=== PATIENT | male | born 1980 | race Caucasian/White ===

== ENCOUNTER 2017-05-11 22:04 | Emergency (ER) | payer OTHER ==
[~2017-05-11] VITALS: Ht 172.7 cm; Wt 86.6 kg
[~2017-05-11 22:04] MED LIST: BENTYL20 MG PO; DICYCLOMINE HCL10 MG PO; DICYCLOMINE HCL20 MG PO; DILAUDID2 MG PO; NORCO 5-325 TA1 EACH PO; ONDANSETRON HCL8 MG PO; PERCOCET 5-3251 EACH PO; PREDNISONE10 MG PO; PREDNISONE20 MG PO; PREVACID15 MG PO; PRILOSEC40 MG PO; PROMETHAZINE HC50 MG PO; PROTONIX40 MG PO; ULTRAM50 MG PO; VITAMIN D31000 UNIT PO; ZOFRAN ODT4 MG SL; ZOFRAN4 MG PO
[2017-05-11] MEDS ORDERED: TRAMADOL HCL50 MG PO (23:13)
[2017-05-24] MEDS ORDERED: BENTYL10 MG PO (13:59)
[2017-05-24] MEDS ORDERED: DICLOFENAC POTA50 MG PO (14:00)
[2017-05-24] MEDS ORDERED: EPIPEN 2-P0.3 MG/0.3 IM (14:01)
[2017-05-24] MEDS ORDERED: LEXAPRO20 MG PO (14:02)
[2017-05-24] MEDS ORDERED: LOPERAMIDE2 MG PO (14:03)
[2017-05-24] MEDS ORDERED: VENTOLIN HFA18 GM INH (14:03)
[2017-05-24] MEDS ORDERED: ZOFRAN4 MG PO (14:04)
[2017-10-02] MEDS ORDERED: AZITHROMYCIN500 MG PO (14:17)
== END 2017-05-11 23:41 | disposition home or self-care (01) ==
LOC: ED 22:04
PROC: 2W3DX1Z Immobilization of Left Lower Arm using Splint (ICD-10-PCS; principal; 2017-05-11)
DX: S62.002A Unspecified fracture of navicular [scaphoid] bone of left wrist, initial encounter for closed fracture (principal); K21.9 Gastro-esophageal reflux disease without esophagitis; F17.200 Nicotine dependence, unspecified, uncomplicated; Z87.442 Personal history of urinary calculi; Z88.5 Allergy status to narcotic agent; Z79.899 Other long term (current) drug therapy; Z91.030 Bee allergy status; X58.XXXA Exposure to other specified factors, initial encounter
CPT/HCPCS: 29125; 73110; 99283

== ENCOUNTER 2017-06-09 11:00 | Day surgery (SDC) | payer OTHER ==
[~2017-06-09] VITALS: Ht 172.7 cm; Wt 83.5 kg
[~2017-06-09 11:00] MED LIST changes: +BENTYL10 MG PO; +DICLOFENAC POTA50 MG PO; +EPIPEN 2-P0.3 MG/0.3 IM; +LEXAPRO20 MG PO; +LOPERAMIDE2 MG PO; +TRAMADOL HCL50 MG PO; +VENTOLIN HFA18 GM INH
--- NOTE | 2017-06-09 12:43 | NUR ---
06/09/17 1243 Melissa Campoverde 1232 PT SLEEPY LAYING ON STOMACH. NO C/O'S.
--- NOTE | 2017-06-14 09:37 | OR ---
[facility] [address] [place] [address] Signed DATE OF SERVICE: 06/09/2017 PROCEDURE Left posterior iliac crest bone marrow biopsy and aspirate. After explaining risks, benefits, and alternatives to bone marrow biopsy and aspiration under conscious sedation for evaluation of a myeloproliferative syndrome and obtaining informed written consent, the patient was taken to a private area of the post anesthesia recovery unit where a time-out was taken and the patient and the procedure were correctly identified. He was placed in the prone position. The left posterior iliac crest was prepped and draped in the usual standard manner. Conscious sedation was applied by ANGIE Orozco with 100 mcg of intravenous fentanyl and 3 mg of intravenous midazolam. Local anesthesia was obtained over the left posterior iliac crest with 1 mL of 1% lidocaine and a left posterior iliac crest bone marrow biopsy and aspirate were obtained without adverse effects. Kyra Foreman MD RQ/Modl /[id number] Electronically Signed By: KYRA FOREMAN MD 06/14/17 0937 PATIENT NAME: SARBJIT WALLS BART OPERATIVE REPORT DATE OF : 82 PHYSICIAN: KYRA FOREMAN MD REPORT #: [id number] REPORT IS CONFIDENTIAL AND NOT TO BE RELEASED WITHOUT AUTHORIZATION
--- NOTE | 2017-06-28 14:21 | ONC ---
[facility] [address] [place], [place] [address] 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 ACTIVE DIAGNOSES: Sarbjit has a documented elevation of his white blood count repeatedly ever since April 14, 2008, when his white count was 17,900. The patient went on to have 10 determinations of his white count since 2007; all have been abnormal white count elevations between 12,000 and 25,600. Complete blood count on March 10, 2017 was notable for a white count of 15,500, hemoglobin of 16 g/dL, hematocrit 48.7%, platelet count 329,000. Bone marrow biopsy and aspiration were performed on June 09, 2017. Pathological specimen [facility] [id number] was analyzed at [facility] and demonstrated a normal cellular bone marrow for age with trilineage hematopoiesis and no evidence of increased blasts, no evidence of reticulin fibrosis, no evidence of acute or chronic leukemia, no evidence of infiltrative process such as lymphoma or multiple myeloma and cytogenetics demonstrating 47 XY diploid male in 20 out of 20 metaphases. CHIEF COMPLAINT: Sarbjit Mello returned to clinic on June 23, 2017, to follow up on his June 09, 2017, bone-marrow biopsy. CURRENT REVIEW OF SYSTEMS: CONSTITUTIONAL: Positive for fatigue, positive for nausea, positive for vomiting, positive for night sweats. Denies high fever or shaking chills. Denies anorexia or weight loss. ENMT: Denies odynophagia, dysphagia or tinnitus. CARDIOVASCULAR: Denies chest pains, palpitations or orthopnea. RESPIRATORY: Denies cough, hemoptysis, or sputum production. GASTROINTESTINAL: Positive for chronic diarrhea. GENITOURINARY: Denies hematuria or dysuria. MUSCULOSKELETAL: Positive for chronic joint pain rated at 6/10. NEUROLOGIC: Positive for insomnia. ENDOCRINE: Denies heat or cold intolerance, polyuria, or polydipsia. HEMATOLOGIC: Denies spontaneous bruising or bleeding. PAST MEDICAL HISTORY: Depressive disorder. Syncope. Gastroesophageal reflux disease. Hyperlipidemia. Electronically Signed By: KYRA FOREMAN MD 06/28/17 1421 PATIENT NAME: SARBJIT MELLO ONCOLOGY REPORT DATE OF : 82 PHYSICIAN: KYRA FOREMAN MD REPORT #: [id number] REPORT IS CONFIDENTIAL AND NOT TO BE RELEASED WITHOUT AUTHORIZATION [facility] [address] [place] [id number] Signed Irritable bowel syndrome. Sleep apnea. Osteoarthritis. Vitamin D deficiency. PAST SURGICAL HISTORY: None. PSYCHOSOCIAL HISTORY: Lives in [place], [place], with his mother. He is unemployed. HABITS: Tobacco, 1 pack of cigarettes per day for 25 years. Daily smoking marijuana for 20 years. No use or abuse of alcohol. No use or abuse of intravenous or recreational drugs. FAMILY HISTORY: No history of cancer in first-degree relatives. CURRENT MEDICATIONS: Percocet 5/325. Simvastatin 20 mg. Vitamin D 2000 units. Diclofenac 50 mg. Ventolin HFA 108 mcg. Promethazine 50 mg. Omeprazole 20 mg. Escitalopram 20 mg. Zofran 8 mg ODT. Loperamide 2 mg. Bentyl 20 mg. EpiPen 0.3 mg. CPAP device. ALLERGIES: Vicodin. PHYSICAL EXAMINATION: VITAL SIGNS: Blood pressure is 147/84, pulse is 105, respiratory rate 16, saturation of oxygen 97% on room air, temperature is 97.5 degrees Fahrenheit. He is 5 feet and 8 inches tall. He weighs 84.2 kg. Body surface area is 1.94 m2, body mass index is 28.2 kg/m2. ECOG performance status equals 0. HEENT: Sclerae are anicteric. Oropharynx is free of lesions. NECK: Supple without thyromegaly. LUNGS: Clear to auscultation. CARDIOVASCULAR: Regular rate and rhythm. Normal S1, normal S2 without rubs, gallops, or Electronically Signed By: KYRA FOREMAN MD 06/28/17 1421 PATIENT NAME: SARBJIT MELLO ONCOLOGY REPORT DATE OF : 82 PHYSICIAN: KYRA FOREMAN MD REPORT #: [id number] REPORT IS CONFIDENTIAL AND NOT TO BE RELEASED WITHOUT AUTHORIZATION [address] [address] Signed murmurs. ABDOMEN: Notable for the absence of splenomegaly. LYMPH NODE SURVEY: No cervical, supraclavicular, axillary or inguinal lymphadenopathy. MUSCULOSKELETAL: No joint deformity, no sarcopenia. SKIN: Notable for the fact that approximately 20% of his body is covered with tattoos including the chest, both shoulders, upper extremities and abdomen. There are smaller tattoos on the lower extremities. LABORATORY DATA: Hemoglobin is 16.5 g/dL, hematocrit is 48.8%, platelet count is 300,000, white count is 16,400, with 53 neutrophils, 37 lymphocytes, 5% monocytes, 5% eosinophils and 1% basophils. ASSESSMENT: Leukemoid reaction due to chronic tobaccoism. PLAN: Reassurance. I told Sarbjit that there is no evidence of hematopoietic neoplasm and that his elevation of white count is due to his chronic cigarette smoking. I recommended that he work with Ryann Braden on concerted effort to stop cigarette smoking, which should ultimately normalize his white count over time. Followup in the cancer center is open. Kyra Foreman MD RQ/Modl /[id number] cc: Dr. Ryann Braden Electronically Signed By: KYRA FOREMAN MD 06/28/17 1421 PATIENT NAME: SARBIJT MELLO BART ONCOLOGY REPORT DATE OF : 82 PHYSICIAN: KYRA FOREMAN MD REPORT #: [id number] REPORT IS CONFIDENTIAL AND NOT TO BE RELEASED WITHOUT AUTHORIZATION
[2017-10-02] MEDS ORDERED: AZITHROMYCIN500 MG PO (14:17)
== END 2017-06-09 13:19 | disposition home or self-care (01) ==
LOC: DS 11:00
PROVIDERS: Specialist
PROC: 07DR3ZX Extraction of Iliac Bone Marrow, Percutaneous Approach, Diagnostic (ICD-10-PCS; principal; 2017-06-09 12:00)
DX: D72.829 Elevated white blood cell count, unspecified (principal); F32.9 Major depressive disorder, single episode, unspecified; K21.9 Gastro-esophageal reflux disease without esophagitis; E78.5 Hyperlipidemia, unspecified; K58.9 Irritable bowel syndrome, unspecified; G47.30 Sleep apnea, unspecified; M19.90 Unspecified osteoarthritis, unspecified site; E55.9 Vitamin D deficiency, unspecified; Z79.52 Long term (current) use of systemic steroids; Z79.899 Other long term (current) drug therapy; Z88.5 Allergy status to narcotic agent
CPT/HCPCS: 85025; 99152; 99153; J2250; J3010; J7040

== ENCOUNTER 2017-09-29 11:16 | Inpatient (IN) | payer OTHER ==
[~2017-09-29] VITALS: Ht 172.7 cm; Wt 83.9 kg
--- OUTSIDE RECORDS SUMMARY | 2017-09-29 13:14 | XMS ---
Demographics + + + | Address | [address] | | | [address] | | | [place] [address] | + + + | Preferred Language | Unknown | + + + | Marital Status | Unknown | + + + | Zoroastrian Affiliation | Unknown | + + + | Race | Unknown | + + + | Ethnic Group | Unknown | + + + Author + + + | Author | [facility] | + + + | Organization | [facility] | + + + | Address | [address] | | | [place] [phone] | + + + | Phone | | + + + Care Team Providers + + + + | Care Documentation Specialist Name | Role | Phone | + + + + Unavailable | Unavailable | + + + + PROBLEMS +---------+ + + +--------+ + + | Type | Condition | ICD9-CM | [id number] | Onset | Condition | SNOMED | | | | Code | Code | Dates | Status | Code | +---------+ + + +--------+ + + | Problem | 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
--- NOTE | 2017-09-29 15:21 | NUR ---
ASSISTED NURSE WITH GETTING PATIENT ADMITTED AND SETTLED. INITIAL VITAL SIGNS TAKEN.
--- NOTE | 2017-09-29 15:21 | NUR ---
PT ARRIVED TO UNIT AT 1500. PT ABLE TO SELF TRANSFER. PT REPORTS CONSTANT PAIN OF 4/10, BUT INTERMITENT SPASAM OF 10/10. PT REPORTS HE IS A [employer] RE[employer] AND HAS MULTIPLE HEAD TRAUMAS/HITS. UNABLE TO LOOK TO RIGHT AND UP OR HE WILL PASS OUT, PT AWARE OF THIS AND MODIFIES BEHAVIOR. PT STATES HE IS TRYING TO QUIT SMOKING TO HAVE SURGERY ON HIS HAND. HX OF TRIGGER FINGER IN RIGHT HAND.
--- NOTE | 2017-09-29 17:58 | NUR ---
pts vitals taken at this time.
--- NOTE | 2017-09-29 18:04 | NUR ---
PT ARRIVED ON FLOOR AT 1500. REPORTS CONSTANT PAIN OF 4/10, SPASMATIC PAIN IS 10/10. PT RECIEVED K RIDER, CLINDIMYCIN, AND FLAGYL THIS SHIFT. 1L BOLUS GIVEN, 1 MORE BOLUS ORDERED AFTER RIDERS. BOWEL PREP ORDERED. PT WILL BE NPO AT 0800 ON 12/02 FOR POSSIBLE SURGERY. VSS.
--- NOTE | 2017-09-29 18:28 | NUR ---
BOWEL PREP AT BEDSIDE. PT UNDERSTANDS DIRECTIONS TO DRINK THE PREP.
--- NOTE | 2017-09-29 19:15 | NUR ---
BEDSIDE REPORT RECEIVED FROM ANGIE GONZALEZ. PT REPORTS PAIN OF 3-4/10 "PRESSURE" IN ABDOMEN, PT STATES TOLERABLE, REFUSES PRN PAIN MEDICATION, EDUCATED PT TO REPORT PAIN. PT DENIES NAUSEA. URINAL EMPTIED, 200 ML. PT HAS BOWEL PREP ON BEDSIDE TABLE, SECOND IV FLUID BOLUS LR INFUSING WNL, RATE SLOWED TO 500 ML/HR PT REPORTS SOME DISCOMFORT W RAPID INFUSION, NO SWELLING, REDNESS AT SITE. PT HAS NO REQUESTS AT THIS TIME, CALL LIGHT IN REACH.
--- NOTE | 2017-09-29 20:30 | NUR ---
ANSWERED PT CALL LIGHT, PT REPORTING PAIN 8/10 IN RIGHT ABDOMINAL AREA. ADMINSITERED 8 MG PRN IV MORPHINE. PT SITTING UP IN BED, PT ASSESSMENT COMPLETE. BOWEL TONES HYPOACTIVE X 4. ABDOMEN NON-TENDER WITH LIGHT PALPATION, PT STATES FEELS "TIGHT". PT HAS NOT HAD BM THUS FAR, CONTINUES TO DRINK BOWEL PREP. IVF INFUSING WNL, IV SITE FLUSHES WELL, PT DENIES DISCOMFORT WITH SITE. BROUGHT PT'S FRIEND PILLOW, WATER. EMPTIED PT'S URINAL. PT HAS NO ADDITIONAL NEEDS AT THIS TIME, CALL LIGHT IN REACH.
--- NOTE | 2017-09-29 22:04 | NUR ---
PT SLEEPING AT THIS TIME. IN ROOM TO ASSESS IV FLUIDS, PT AWAKENS TO VOICE, BACK TO SLEEP, FRIEND IN ROOM. CALL LIGHT IN REACH.
--- NOTE | 2017-09-29 22:42 | NUR ---
PT SLEEPING, AWAKENS TO VOICE, FLAGYL INFUSING AT THIS TIME. PT REPORTS TIGHTNESS, 0/10 PAIN. PT DENIES NAUSEA. PT HAS NO REQUESTS AT THIS TIME, CALL LIGHT IN REACH.
--- NOTE | 2017-09-29 23:36 | NUR ---
PT VOMITTING IN GARBAGE CAN. ADMINISTERED 4 MG ZOFRAN. PT STATED THAT HE HAD INTENSE PAIN, PT NOW RATES PAIN AT 4/10 IN RLQ. PT REFUSES PRN MORPHINE AT THIS TIME. OFFERED PT WASH CLOTH, PT STATES HE HAS NO NEEDS. PT COMPLAINS OF DIZZINESS, INSTRUCTED PT TO LIE DOWN, PT NOW APPEARS COMFORTABLE, IV ABT INFUSING. [facility] [employer] OBTAINED STOOL CULTURE, SENT TO LAB. CALL LIGHT IS IN REACH.
--- NOTE | 2017-09-30 00:39 | NUR ---
PT SLEEPING AT THIS TIME, LYING ON RIGHT SIDE, SNORING. IV ABT INFUSING AT THIS TIME. PT HAS CALL LIGHT IN REACH.
--- NOTE | 2017-09-30 01:00 | NUR ---
PT REPORTING 6/10 ABD PAIN, UP TO RESTROOM FOR LIQUID BM. EDUCATED PT ON FINISHING BOWEL PREP. ADMINISTERED 8 MG MORPHINE SULFATE IV FOR ABD PAIN. PTS LUNGS CLEAR, BOWEL TONES ACTIVE X 4. PT ABDOMEN SOFT. PT HAS CALL LIGHT IN REACH. IVF INFUSING WNL. PT HAS EMESIS BAG IN LAP.
--- NOTE | 2017-09-30 03:50 | NUR ---
PT AWAKE, LYING IN BED. PT DENIES NAUSEA, STATES HE IS NOT HAVING ANY PAIN AT THIS TIME. PT ABDOMEN SOFT, BOWEL TONES ACTIVE X 4. PT STATES HE WAS JUST UP FOR LIQUID BM, CONTINUING TO DRINK BOWEL PREP. BROUGHT PT WARM BLANKET, DIMMED LIGHTS. PT LISTENING TO BOOK ON TAPE, NO ADDITIONAL REQUESTS AT THIS TIME, IVF INFUSING AT 150 ML/HR. CALL LIGHT IS IN REACH.
--- NOTE | 2017-09-30 05:30 | NUR ---
PT HAS BEEN INDEPENDENT IN ROOM THROUGHOUT SHIFT, UP TO RESTROOM FOR MULTIPLE LIQUID BOWEL MOVEMENTS, DRINKING BOWEL PREP THROUGHOUT SHIFT. PT HAS RECEIVED IV MORPHINE FOR PAIN X 2, HAD ONE EPISODE OF NAUSEA/VOMITTING, RECEIVED PRN ZOFRAN X 1. PT HAS LIED IN BED FOR MAJORITY OF SHIFT, HAS SLEPT OFF AND ON. PT ABDOMEN SOFT, BOWEL TONES ACTIVE, CONSISTENT TIGHTNESS IN RIGHT ABDOMEN.
--- NOTE | 2017-09-30 06:17 | NUR ---
PRN MORPHINE SULFATE IV ADMINISTERED FOR PT REPORTED 6/10 SHARP PAIN IN RIGHT LOWER QUADRANT. PT DENIES NAUSEA AT THIS TIME. PT SITTING UP IN BED, REPORTING THAT HE IS WANTING A CIGARETTE, REFUSES PRN NICOTINE LOSANGE. IV FLAGYL INFUSING AT THIS TIME. CALL LIGHT IN REACH.
--- NOTE | 2017-09-30 07:22 | NUR ---
RECIEVED REPORT FROM ANGIE DAS. PER PT REQUEST, REPORT DONE IN THE [facility]. PT SLEEPING, BREATHING EVEN AND UNLABORED. D5LR AT 150ML/HR IN RIGHT WRIST. NO C/O DISCOMFORT AT IV SITE OVERNIGHT. INTERMITENT BOUTS OF SEVERE PAIN AND NAUSEA. STOOL SAMPLE SENT TO LAB. NPO AT 0800 FOR POSSIBLE SURGERY. BOWEL PREP GIVEN.
--- NOTE | 2017-09-30 08:15 | NUR ---
PT ASLEEP IN BED. UPDATED GEO FONSECA. WILL CHECK ON A LITTLE LATER.
--- NOTE | 2017-09-30 10:30 | CONS ---
[facility] [address] [place], [place] [address] Signed DATE OF CONSULTATION: 09/29/2017 CONSULTING PHYSICIAN: Tiana Comer MD PROBLEM: Right-sided colitis, possibly Crohn disease. HISTORY OF PRESENT ILLNESS: This 36-year-old somewhat obese white man presented to the emergency room with rather severe right-sided abdominal pain. The patient has had many months, possibly even years of episodic right abdominal pain and diarrhea. Indeed, he underwent colonoscopy and upper endoscopy approximately 5 years ago in [place], where he was said to have "GERD" as well as "irritable bowel syndrome," he says. It is notable that his father has Crohn disease. His evaluation in the emergency room showed him to have an elevated white count of 17.4, platelet count 289,000, Chem profile which showed potassium of 3.5, and other studies normal including amylase, lipase, and liver enzymes. His glucose was 102. His urinalysis showed dehydration with a specific gravity of 1.096. A CT scan of the abdomen and pelvis was obtained, which showed mild diffuse thickening of the majority of the transverse colon and distal ascending colon with moderate pericolonic fat stranding. A neoplasm could not be entirely excluded, but is considered most likely infectious or inflammatory. His past surgical history includes vasectomy. No abdominal surgery has been performed. He is self-described as having "PTSD." He would not elaborate on the source of this ailment. His medications at admission include albuterol (Ventolin) inhaler; vitamin D3; Bentyl; EpiPen for allergy issues, has wasp allergies; loperamide; omeprazole; and Percocet. Additionally, he takes Lexapro. REVIEW OF SYSTEMS: He denies any shortness of breath or chest pain. He has had no hematemesis. He does not have gross blood per rectum. PHYSICAL EXAMINATION: GENERAL: A relatively short, but cheatham and pale white man with red and long hair on the top and short hair on the side. He has multiple tattoos including his arms. He is accompanied by his son and significant other female person. He does not look systemically toxic. NECK: His trachea is midline. He has no cervical adenopathy. No hoarseness. CHEST: Clear. Electronically Signed By: TIANA COMER MD 09/30/17 1030 PATIENT NAME: SARBJIT WALLS CONSULTATION DATE OF : 82 PHYSICIAN: TIANA COMER MD REPORT #: [id number] REPORT IS CONFIDENTIAL AND NOT TO BE RELEASED WITHOUT AUTHORIZATION [facility] [address] [place], [place] [address] Signed HEART: Regular without murmur. ABDOMEN: Nondistended and generally flat. There is mild tenderness in the right and mid abdomen. No sign of peritonitis. There is no ascites. EXTREMITIES: Show no clubbing, cyanosis, or edema. MEDICATIONS: He has been placed on and reviewed including nicotine patch, Flagyl, antibiotic, ciprofloxacin. ASSESSMENT: It is highly probable that he does in fact have inflammatory bowel disease given the chronicity of his symptoms over quite some time and despite his previous colonoscopy, which was characterized primarily as irritable bowel syndrome. More likely this is inflammatory bowel disease. This is particularly true given his father's history. I reviewed the CT scan myself and the inflammatory changes are significant including the transverse colon, more proximally to the ascending colon. I do not see terminal ileitis. There is no sign of free fluid or free air. Colonoscopy would be appropriate to verify the findings. The likelihood of this being an infectious diarrhea is low, though not impossible, of course. The prep of sorts may be tolerated tonight including magnesium citrate. He has had enough diarrhea lately that he may not have all that much to pass through in a prep. Examination of his CT, however, does show stool within the colon and he might need more of a prep then he surmises himself. I discussed with him the risks of bleeding, infection, and perforation related to colonoscopy. He is well familiar with it from his previous colonoscopy performed in [place]. MD MARY Betancourt/MODL /[id number] Electronically Signed By: TIANA COMER MD 09/30/17 1030 PATIENT NAME: SARBJIT WALLS BART CONSULTATION DATE OF : 82 PHYSICIAN: TIANA COMER MD REPORT #: [id number] REPORT IS CONFIDENTIAL AND NOT TO BE RELEASED WITHOUT AUTHORIZATION [facility] [address] [place], [place] [address] Signed cc: Edvin Jerry MD Electronically Signed By: TIANA COMER MD 09/30/17 1030 PATIENT NAME: KAVITASARBJIT CONSULTATION DATE OF : 82 PHYSICIAN: TIANA COMER MD REPORT #: [id number] REPORT IS CONFIDENTIAL AND NOT TO BE RELEASED WITHOUT AUTHORIZATION
--- NOTE | 2017-09-30 10:54 | NUR ---
PT OFF THE FLOOR TO SURGERY AT 1045.
--- NOTE | 2017-09-30 11:48 | NUR ---
09/30/17 1148 [address] [place] 1139 - PT ARRIVED TO PACU, MAINTAINING OWN AIRWAY.
--- NOTE | 2017-09-30 12:23 | NUR ---
PT RETURNED FROM PACU AT 12:15. REPORT AT BEDSIDE FROM ANGIE RODRIGUEZ. PT DROWSY, BUT WAKES TO VOICE. PT FEELS NEED TO HAVE BM, REORIENTATE TO SITUATION, COLON IS FILLED WITH AIR ONLY. BT ACTIVE, ENCOURAGE PT TO PASS GAS. IV RUNNING.
--- NOTE | 2017-09-30 12:29 | NUR ---
PT JUST GOT BACK FROM SCOPE. CHANGED LINES AND TOOK VITALS
--- NOTE | 2017-09-30 14:36 | NUR ---
PT IV CLOTTED OFF. UNABLE TO CLEAR CLOT. NEW IV STARTED IN LEFT AC. PT TOLERATED WELL, HOWEVER HE C/O NAUSEA. ZOFRAN NOT AVAILABLE.
--- NOTE | 2017-09-30 15:22 | NUR ---
PT IS SLEEPING IN BED. WILL CHECK IN ON LATER
--- NOTE | 2017-09-30 16:29 | NUR ---
PT IS SLEEPING IN HIS BED. WILL CHECK ON LATER.
--- NOTE | 2017-09-30 17:50 | NUR ---
PT HAD COLONOSCOPY THIS AM. RESULTS SHOWED ONLY MINOR INFLAMATION. DIET ADVANCED TO LOW FIBER, PT TOLERATED WELL. MINOR EPISODES OF NAUSEA POST PROCEDURE. PAIN CONTROLED. IV NOT PATENT, NEW IV SITE IN LEFT AC. IV FLUIDS DECREASED TO 75ML/HR. PASSING GAS, VOIDING WELL.
--- NOTE | 2017-09-30 18:13 | NUR ---
TOOK PT VITALS. FRESH ICE WATER.
--- NOTE | 2017-09-30 18:18 | NUR ---
PT SLEEPING SOUNDLY, BREATHING EVEN AND UNLABORED, SOFTLY SNORING.
--- NOTE | 2017-09-30 19:05 | NUR ---
BEDSIDE REPORT RECEIVED FROM ANGIE GONZALEZ. PT SLEEPING IN BED ON LEFT SIDE, VISIBLE CHEST RISE, PT SNORING, IVF INFUSING. WILL CONTINUE TO MONITOR.
--- NOTE | 2017-09-30 20:11 | NUR ---
PT CONTINUES TO SLEEP AT THIS TIME, VISIBLE CHEST RISE, SNORING HEARD FROM DOORWAY. IVF INFUSING. PT'S FRIEND FRANCHESCA BROUGHT PT BELONGING BAG WITH CLOTHING, WALLET, PLACED ON BEDSIDE TABLE IN ROOM.
--- NOTE | 2017-09-30 21:11 | NUR ---
PT AWAKE AT THIS TIME, AMBULATING TO RESTROOM TO VOID, 225 ML OUT. ASSESSMENT COMPLETE. ABDOMEN SOFT, MILD DISTENTION, BOWEL TONES ACTIVE. PT DENIES PAIN, DENIES NAUSEA, PT DOES REPORT "TIGHTNESS" IN RLQ. PT PASSING GAS. IV SITE WNL, GOOD BLOOD RETURN, FLUSHES WELL. PT CHANGED INTO SWEATS, BACK IN BED, LIGHTS OFF. NO ADDITIONAL REQUESTS AT THIS TIME REFILLED PTS ICE WATER. CALL LIGHT IS IN REACH, IVF INFUSING.
--- NOTE | 2017-09-30 22:58 | NUR ---
PT SLEEPING AT THIS TIME, BOOK ON TAPE PLAYING, VISIBLY BREATHING FROM DOORWAY, PT SNORING, IVF INFUSING.
--- NOTE | 2017-10-01 00:37 | NUR ---
PT SLEEPING, SNORING HEARD FROM DOORWAY, BREATHING NON-LABORED, IVF INFUSING.
--- NOTE | 2017-10-01 02:12 | NUR ---
PT ASSESSMENT COMPLETE. PT AWAKE IN BED, LUNGS CLEAR, BOWEL TONES ACTIVE X 4, ABDOMEN SOFT, NON-TENDER WITH PALPATION. PT REPORTING ABD PAIN 6/10 AT THIS TIME. ADMINISTERED PRN PERCOCET X 1. PT CONCERNED WITH TAKING PAIN PILLS STATING HE DID NOT WANT TO GET DEPENDENT ON PILLS IN HOSPITAL AND GO HOME WITHOUT ANYTHING. PT DID STATE THAT HE HAS PERCOCET AT HOME WHEN ASKED BY RN. GAVE PT CRACKERS, PUDDING TO EAT WITH PERCOCET. PT UP TO RESTROOM AT THIS TIME, INSTRUCTED PT TO USE CALL LIGHT IF ASSISTANCE NEEDED.
--- NOTE | 2017-10-01 02:25 | NUR ---
TOOK PT VITALS , INTAKE AND OUTPUT DONE WELL PT WAS SLEEPING I HAD TO WAKE HIM UP. HE WAS VERY PLEASANT.
--- NOTE | 2017-10-01 02:25 | NUR ---
PT BACK IN BED AT THIS TIME, IVF INFUSING. PT HOLDING ABDOMEN, IN PAIN. PT HAS NO REQUESTS AT THIS TIME, URINAL EMPTIED, 275 ML. CALL LIGHT IN REACH. PT LYING ON RIGHT SIDE.
--- NOTE | 2017-10-01 04:55 | NUR ---
CHECKED ON PT, PT LYING ON RIGHT SIDE, VISIBLE CHEST RISE, PT SNORING.
--- NOTE | 2017-10-01 05:39 | NUR ---
PT SITTING UP IN BED, RN IN TO CHECK ON PT. PT DENIES PAIN AT THIS TIME, DENIES NAUSEA. PT REQUESTED TOAST WITH BUTTER TO EAT, BROUGHT PT TOAST. PT HAS NO ADDITIONAL REQUESTS AT THIS TIME.
--- NOTE | 2017-10-01 05:42 | NUR ---
PT SLEPT FOR MOST OF SHIFT, COMPLAINED OF INTENSE 6/10 PAIN ONCE AND RECEIVED PRN PERCOCET X 1. PT CONTINUES TO RECEIVE IVF WNL. PT HAS DENIED NAUSEA THIS SHIFT. BOWEL TONES ACTIVE, ABDOMEN SOFT, PT PASSING GAS. PT INDEPENDENT IN ROOM, UP TO RESTROOM FOR VOIDS, QUANITY SUFFICIENT.
--- NOTE | 2017-10-01 06:14 | NUR ---
PT AWAKE SITTING UP IN BED, OFFERED PT MENU TO ORDER BREAKFAST. GAVE PT PHONE AND INSTRUCTED PT ON CALLING KITCHEN. PT STATES HE'S HUNGRY, TOLERATED WHITE TOAST WELL, DENIES NAUSEA. CALL LIGHT IN REACH, IVF INFUSING.
--- NOTE | 2017-10-01 07:08 | NUR ---
RECIEVED BEDSIDE REPORT FROM ANGIE DAS. PT AWAKE AND ALERT, SITTING IN BED. PAIN WELL CONTROLLED WITH PRN PERCOCET. TOLERATING LOW FIBER DIET WELL. NO COMPLAINTS OF NAUSEA. INDEPENDENT IN ROOM. VOIDING WELL. IV FLUIDS RUNNING AT 75ML/HR. PT MAY NEED A CARE RIDE AT DISCHARGE.
--- NOTE | 2017-10-01 09:15 | NUR ---
PT AWAKE IN BED TOOK PT TO BR. FRESH ICE WATER. SET UP FOR SHOWER.
--- NOTE | 2017-10-01 09:54 | NUR ---
Med rec complete with patient interview
[2017-10-01] MEDS ORDERED: BENTYL10 MG PO (10:01)
--- NOTE | 2017-10-01 10:32 | NUR ---
PT WALKED TO TO THE TURN LASTER. HE HAS GIVEN A TAXI TICKET TO HOME. PT WAITING AT THE DESK FOR TAXI. PT VERBALIZED UNDERSTAND OF DC INSTRUCTIONS.
[2017-10-02] MEDS ORDERED: AZITHROMYCIN500 MG PO (14:17)
--- NOTE | 2017-10-03 11:14 | OR ---
[facility] [address], [place] [address] Signed DATE OF OPERATION: 09/30/2017 SURGEON: Tiana Comer MD PREOPERATIVE DIAGNOSES: 1. Diffuse abdominal pain and CT scan findings showing colitis of ascending and transverse colon with pericolonic fat stranding. 2. Family history of Crohn's disease (father). POSTOPERATIVE DIAGNOSES: 1. No evidence of neoplastic disease of entire colon and rectum. 2. Minimal edema of transverse colon and portion of sigmoid. PROCEDURE: Total colonoscopy to cecum with biopsies. ANESTHESIA: Intravenous sedation with fentanyl 150 mcg and Versed 4 mg. INDICATION: This 36-year-old white man is admitted to the hospital by Dr. Jerry following an evaluation in the emergency room by Dr. Raphael Beavers for diffuse abdominal pain and a CT scan finding showing apparent inflammation of the transverse and ascending colon with pericolonic fat stranding. He does have family history of Crohn's disease in his father. He has had diarrhea and other issues for many months, indeed underwent upper colonoscopy in [place] at least 2 years ago and as possibly longer was 5 years ago showing no sign of colonic pathology. He is admitted after bowel prep while in hospital to undergo colonoscopy. Understand the risks of bleeding, infection, and perforation. FINDINGS: The prep was quite excellent. Complete colonoscopy was undertaken of the cecum. Attempts to intubate the ileum were unsuccessful though were attempted multiple times. The only finding was minimal edema of the transverse colon and actually the sigmoid. The ascending did not appear troubled at all. There is certainly no sign of mucosal lesion or findings typical of Crohn's or ulcerative colitis. DESCRIPTION OF PROCEDURE: The patient was brought to the endoscopy suite and placed in lateral decubitus position, given intravenous sedation to the point of slurred speech and nystagmus. Full cardiopulmonary monitoring was undertaken. He did have oxygenation pattern highly Electronically Signed By: TIANA COMER MD 10/03/17 1114 PATIENT NAME: SARBJIT WALLS OPERATIVE REPORT DATE OF : 82 PHYSICIAN: TIANA COMER MD REPORT #: [id number] REPORT IS CONFIDENTIAL AND NOT TO BE RELEASED WITHOUT AUTHORIZATION [facility] [address], [place] [address] Signed consistent with sleep apnea syndrome. Careful monitoring was maintained throughout. Digital rectal examination was normal. An Olympus video colonoscope was passed in the rectum and manipulated throughout the colon, ultimately intubating the cecum. The ileocecal valve appeared normal. Attempts to intubate were unsuccessful, however. Biopsies were taken of the cecum and the scope was withdrawn and biopsies taken of the ascending and transverse colon as well as the left and sigmoid colon. There was surprisingly little from the mucosal standpoint of findings particularly in the areas apparently afflicted by his process on CT scan. Only mild edema was noted. There was certainly no ulcerations, bleeding, or findings typical of inflammatory bowel disease. Retroflexed view of the rectum was normal as well. The scope was removed and after biopsies taken throughout including the rectum and he was taken to recovery room in good condition. CONCLUDING DIAGNOSIS: Mucosal findings completely discordant to CT scan findings. He will return to the ongoing care of Dr. Jerry. I will review things further. Pathology report is pending of course. Tiana Comer MD JM/MODL /[id number] cc: DO Ryann Izaguirre PA-C Lohith Veerappa Reddy, MD Electronically Signed By: TIANA COMER MD 10/03/17 1114 PATIENT NAME: SARBJIT WALLS OPERATIVE REPORT DATE OF : 82 PHYSICIAN: TIANA COMER MD REPORT #: [id number] REPORT IS CONFIDENTIAL AND NOT TO BE RELEASED WITHOUT AUTHORIZATION
== END 2017-10-01 10:25 | disposition home or self-care (01) | DRG 392 ==
LOC: ED 11:16 → MS 11:17
PROVIDERS: Surgery; ADMIT Internal Medicine
PROC: 0DBH8ZX Excision of Cecum, Via Natural or Artificial Opening Endoscopic, Diagnostic (ICD-10-PCS; principal; 2017-09-30 11:00)
DX: K58.0 Irritable bowel syndrome with diarrhea (principal); K21.9 Gastro-esophageal reflux disease without esophagitis; F39 Unspecified mood [affective] disorder; G89.4 Chronic pain syndrome; F17.210 Nicotine dependence, cigarettes, uncomplicated; G47.33 Obstructive sleep apnea (adult) (pediatric)
CPT/HCPCS: 36415; 74177; 80053; 81001; 82150; 83690; 83735; 85025; 86255; 86671; 87045; 87046; 87077; 87177; 87205; 87209; 87493; 96361; 96365; 96366; 96375; 96376; 99152; 99153; 99285; 99406; J0744; J1170; J1650; J2250; J2270; J2405; J3010; J3480; J7030; J7120; Q9967

== ENCOUNTER 2018-01-14 08:59 | Emergency (ER) | payer OTHER ==
[~2018-01-14] VITALS: Ht 172.7 cm; Wt 90.7 kg
[~2018-01-14 08:59] MED LIST changes: +AZITHROMYCIN500 MG PO
[2018-01-14] MEDS ORDERED: AMITRIPTYLINE H10 MG PO (09:27)
[2018-01-14] MEDS ORDERED: SIMVASTATIN5 MG PO (09:27)
== END 2018-01-14 09:36 | disposition home or self-care (01) ==
LOC: ED 08:59
DX: K08.89 Other specified disorders of teeth and supporting structures (principal)

== ENCOUNTER 2018-07-14 17:47 | Emergency (ER) | payer OTHER ==
[~2018-07-14] VITALS: Ht 172.7 cm; Wt 88.5 kg
--- OUTSIDE RECORDS SUMMARY | ~2018-07-14 | XMS | Clinical Summary ---
Demographics + + + | Address | [address] | | | [place] [address] | + + + | Home Phone | | + + + | Preferred Language | Unknown | + + + | Marital Status | Single | + + + | Sabianism Affiliation | Unknown | + + + | Race | Unknown | + + + | Ethnic Group | Unknown | + + + Author + + + | Author | [facility] | | | and [place] | + + + | Organization | [facility] | | | and [place] | + + + | Address | Unknown | + + + | Phone | Unavailable | + + + Support + + + + + | Name | Relationship | Address | Phone | + + + + + | Miri Robison | ECON | [address] | | | | | [address], | | | | | [place] [address] | | + + + + + | Juan Luis | ECON | Unknown | | + + + + + Care Team Providers + +------+ + | Care Bead Cutter Name | Role | Phone | + +------+ + | Ryann Payne | PP | | | PA | | | + +------+ + Allergies + + + + + + | Active Allergy | Reactions | Severity | Noted | Comments | | | | | Date | | + + + + + + | Bee Venom | Anaphylaxis | High | 12/03/19 | | | | | | 15 | | + + + + + + | Hydrocodone | Nausea And Vomiting | | 12/03/19 | | | | | | 15 | | + + + + + + Current Medications + + +-------+---------+------+------+-------+ | Prescription | Sig. | Disp. | Refills | Star | End | Statu | | | | | | t | Date | s | | | | | | Date | | | + + +-------+---------+------+------+-------+ | omeprazole | Take 40 mg by mouth | | | | | Activ | | (PRILOSEC) 40 MG | every morning | | | | | e | | capsule | (before breakfast). | | | | | | + + +-------+---------+------+------+-------+ | | Take 1 tablet by | | | | | Activ | | oxyCODONE-acetaminop | mouth every 4 hours | | | | | e | | hen (PERCOCET) 5-325 | as needed. | | | | | | | mg per tablet | | | | | | | + + +-------+---------+------+------+-------+ | dicyclomine | Take 20 mg by mouth | | | | | Activ | | (BENTYL) 20 MG | 2 times daily. 1 tab | | | | | e | | tablet | po q6h prn abd pain | | | | | | + + +-------+---------+------+------+-------+ | Cholecalciferol | Take by mouth Once | | | | | Activ | | (VITAMIN D-3) 55796 | a week. | | | | | e | | units CAPS | | | | | | | + + +-------+---------+------+------+-------+ | EPINEPHrine | 1 Solution | | | 09/1 | | Activ | | auto-injector | Auto-injector once | | | 9/20 | | e | | (EPIPEN 2-LESLY) 0.3 | PRN Injection | | | 17 | | | | mg/0.3 mL injection | | | | | | | + + +-------+---------+------+------+-------+ | escitalopram | Take 1 tablet by | | | 06/30 | | Activ | | (LEXAPRO) 20 mg | mouth Daily. | | | 9/20 | | e | | tablet | | | | 17 | | | + + +-------+---------+------+------+-------+ | promethazine | Take 1 tablet by | | | 09/1 | | Activ | | (PHENERGAN) 50 MG | mouth every 6 hours | | | 9/20 | | e | | tablet | as needed. | | | 17 | | | + + +-------+---------+------+------+-------+ | simvastatin | Take 1 tablet by | | | 07/01 | | Activ | | (ZOCOR) 5 mg tablet | mouth Daily. | | | 11/18 | | e | | | | | | 17 | | | + + +-------+---------+------+------+-------+ | ondansetron | Take 1 tablet by | | | 06/30 | | Activ | | (ZOFRAN) 4 mg tablet | mouth Daily. | | | 07/19 | | e | | | | | | 17 | | | + + +-------+---------+------+------+-------+ | amitriptyline | Take 20 mg by mouth | | | | | Activ | | (ELAVIL) 10 mg | nightly. | | | | | e | | tablet | | | | | | | + + +-------+---------+------+------+-------+ | FLUoxetine | Take 40 mg by mouth | | | | | Activ | | (PROZAC) 40 MG | Daily. | | | | | e | | capsule | | | | | | | + + +-------+---------+------+------+-------+ | loperamide | Take 2 mg by mouth 4 | | | | | Activ | | (IMODIUM) 2 mg | times daily as | | | | | e | | capsule | needed for Diarrhea. | | | | | | + + +-------+---------+------+------+-------+ | diclofenac | Take 50 mg by mouth | | | | | Activ | | (VOLTAREN) 50 mg EC | 2 times daily. | | | | | e | | tablet | | | | | | | + + +-------+---------+------+------+-------+ | amoxicillin | | | | 03/1 | | Activ | | (AMOXIL) 500 MG | | | | 8/20 | | e | | capsule | | | | 18 | | | + + +-------+---------+------+------+-------+ Active Problems + + + | Problem | Noted Date | + + + | Tic disorder | 12/28/2017 | + + + | Post-concussion syndrome | 07/20/2017 | + + + | Hemorrhage of rectum and anus | 12/09/2014 | + + + | Diarrhea | 12/09/2014 | + + + | Nausea and vomiting | 12/09/2014 | + + + | GERD (gastroesophageal reflux disease) | 12/03/2014 | + + + Immunizations + + + + | Name | Dates Previously Given | Next Due | + + + + | DTAP, 5 DOSE (PED) | 2000 | | + + + + | INFLUENZA, | 06/30/2017 | | | UNSPECIFIED | | | | FORMULATION | | | + + + + Family History + + +------+ + | Medical History | Relation | Name | Comments | + + +------+ + | Crohn's disease | Father | | | + + +------+ + | GERD | Father | | | + + +------+ + | Diabetes | Maternal | | | | | Aunt | | | + + +------+ + | Diabetes | Maternal | | | | | Grandfath | | | | | er | | | + + +------+ + | Diabetes | Maternal | | | | | Grandmoth | | | | | er | | | + + +------+ + | Heart attack | Maternal | | | | | Grandmoth | | | | | er | | | + + +------+ + | Stroke | Maternal | | | | | Grandmoth | | | | | er | | | + + +------+ + | Diabetes | Maternal | | | | | Uncle | | | + + +------+ + | Heart attack | Maternal | | | | | Uncle | | | + + +------+ + | Diabetes | Mother | | | + + +------+ + | Hypertension | Mother | | | + + +------+ + + +------+ + + | Relation | Name | Status | Comments | + +------+ + + | Father | | | | + +------+ + + | Maternal Aunt | | | | + +------+ + + | Maternal Grandfather | | | | + +------+ + + | Maternal Grandmother | | | | + +------+ + + | Maternal Uncle | | | | + +------+ + + | Mother | | Alive | | + +------+ + + Social History + + + +--------+ + | Tobacco Use | Types | Packs/Day | Years | Date | | | | | Used | | + + + +--------+ + | Current Every Day | Cigarettes | 0.5 | 20 | Started: 1991 | | Smoker | | | | | + + + +--------+ + + +---+---+---+ | Smokeless Tobacco: | | | | | Never Used | | | | + +---+---+---+ + + +---------+ + | Alcohol Use | Drinks/We | oz/Week | Comments | | | ek | | | + + +---------+ + | Yes | | | 1 drink every 6 months | + + +---------+ + + + + | Sex Assigned at | Date Recorded | | | | + + + | Not on file | | + + + Last Filed Vital Signs + + + + | Vital Sign | Reading | Time Taken | + + + + | Blood Pressure | 138/88 | 12/28/2017823 PST | + + + + | Pulse | 88 | 12/28/2017823 PST | + + + + | Temperature | 36.2 C (97.2 F) | 12/10/2014936 PST | + + + + | Respiratory Rate | 18 | 12/28/2017823 PST | + + + + | Oxygen Saturation | 99% | 12/28/2017823 PST | + + + + | Inhaled Oxygen | - | - | | Concentration | | | + + + + | Weight | 90.3 kg (199 lb 1.6 | 12/28/2017823 PST | | | oz) | | + + + + | Height | 172.7 cm (5' 8") | 12/28/2017823 PST | + + + + | Body Mass Index | 30.27 | 12/28/2017 0824 PST | + + + + Plan of Treatment + + + + + | Health Maintenance | Due Date | Last Done | Comments | + + + + + | Vaccine: | | | | | Pneumococcal 19-64 | 0 | | | | (PPSV23 only) Medium | | | | | Risk (1 of 1 - | | | | | PPSV23) | | | | + + + + + | Vaccine: | | 2000 | | | Dtap/Tdap/Td (2 - | 0 | | | | Tdap) | | | | + + + + + | Vaccine: Influenza | | 06/30/2017 | | | (#1) | 8 | | | + + + + + Results Not on filefrom Last 3 Months Insurance + +--------+ +--------+ +---------+ | Payer | Benefi | Subscriber | Type | Phone | Address | | | t Plan | ID | | | | | | / | | | | | | | Group | | | | | + +--------+ +--------+ +---------+ | [employer] | MODA | [id number] | Medica | +- | | | MEDICAID HMO | HEALTH | | id | 9821 | | | | [place] | | | | | [place] | | | | | + +--------+ +--------+ +---------+ | [employer] | MODA | [id number] | Medica | +- | | | MEDICAID HMO | HEALTH | | id | 9821 | | | | [place] | | | | | | [place] | | | | | + +--------+ +--------+ +---------+ + +--------+ +--------+ + + | Guarantor Name | Accoun | Relation to | Date | Phone | Billing Address | | | t Type | Patient | of | | | | | | | | | | + +--------+ +--------+ + + | SARBJIT WALLS | Person | Self [birth year] | Home: | [address] | | | al/Fam | | 1979 | +- | [address] [place] | | | [place] | | | [phone] | [phone] | + +--------+ +--------+ + + | SARBJIT WALLS | Person | Self [birth year] | Home: | [address] | | | al/Fam | | 1979 | +- | [address] [place], [place] | | | [place] | | | [phone] | [phone] | + +--------+ +--------+ + +
--- OUTSIDE RECORDS SUMMARY | ~2018-07-14 | XMS | Clinical Summary ---
Demographics + + + | Address | [address] | | | [place] [address] | + + + | Home Phone | | + + + | Preferred Language | Unknown | + + + | Marital Status | Single | + + + | Baptist Affiliation | Unknown | + + + | Race | Unknown | + + + | Ethnic Group | Unknown | + + + Author + + + | Author | [facility] | | | and [place] | + + + | Organization | [facility] | | | and [place] | [...] [place], | | | | | [place] [address] | | + + + + + | Juan Luis | ECON | Unknown | | + + + + + Care Team Providers + +------+ + | Care Colorist Name | Role | Phone | + [...] | | Activ | | (VITAMIN D-3) 75375 | a week. | | | | [...] | [employer] | MODA | [id number] | Medica | +- | | | MEDICAID HMO | HEALTH | | id | 9821 | | | | [place] | | | | | | | [place] | | | | | + +--------+ +--------+ +---------+ | [employer] | MODA | [id number] | Medica | +- | | | [...] | [place] | | | [phone] | [phone] | + +--------+ +--------+ + + | SARBJIT WALLS | Person | Self [birth year] | Home: | [address] | | | al/Fam | | 1979 | +- | [address] [place], [place] | | | [place] | | | [phone] | [phone] | + +--------+ +--------+ + +
--- OUTSIDE RECORDS SUMMARY | ~2018-07-14 | XMS | Clinical Summary ---
Demographics + + + | Address | [address] | | | [place] [address] | + + + | Home Phone | | + + + | Preferred Language | Unknown | + + + | Marital Status | Unknown | + + + | Buddhism Affiliation | Unknown | + + + | Race | Unknown | + + + | Ethnic Group | Unknown | + + + Author + + + | Author | [facility] | + + + | Organization | [facility] | + + + | Address | Unknown | + + + | Phone | Unavailable | + + + Support + + +---------+ + | Name | Relationship | Address | Phone | + + +---------+ + | N,Contatcs | ECON | Unknown | | + + +---------+ + Care Team Providers + +------+ + | Care Tank Truck Driver Name | Role | Phone | + +------+ + | Ryann Payne | PP | Unavailable | + +------+ + Allergies + + + + + + | Active Allergy | Reactions | Severity | Noted | Comments | | | | | Date | | + + + + + + | Bee Venom | Shortness of Breath | High | 07/07/20 | Asthma | | | | | 16 | | + + + + + + | Hydrocodone-Acetamin | Nausea and Vomiting, | Low | 07/07/20 | Diarrhea | | ophen | Headache | | 16 | | + + + + + + Current Medications + + +-------+---------+------+------+-------+ | Prescription | Sig. | Disp. | Refills | Star | End | Statu | | | | | | t | Date | s | | | | | | Date | | | + + +-------+---------+------+------+-------+ | UNABLE TO FIND | CPAP device and kit | | | | | Activ | | | | | | | | e | + + +-------+---------+------+------+-------+ | | Take 1 tablet by | | | | | Activ | | oxyCODONE-acetaminop | mouth every 4 (four) | | | | | e | | hen (PERCOCET) 5-325 | hours as needed for | | | | | | | MG per tablet | Pain. | | | | | | + + +-------+---------+------+------+-------+ | ondansetron | Take 4 mg by mouth 3 | | | | | Activ | | (ZOFRAN) 4 MG tablet | (three) times daily | | | | | e | | | as needed for | | | | | | | | Nausea. | | | | | | + + +-------+---------+------+------+-------+ | FLUoxetine | Take 40 mg by mouth | | | | | Activ | | (PROZAC) 40 MG | daily. | | | | | e | | capsule | | | | | | | + + +-------+---------+------+------+-------+ | promethazine | Take 50 mg by mouth | | | | | Activ | | (PHENERGAN) 50 MG | every 6 (six) hours | | | | | e | | tablet | as needed for | | | | | | | | Nausea. | | | | | | + + +-------+---------+------+------+-------+ | omeprazole | Take 20 mg by mouth | | | | | Activ | | (PRILOSEC) 20 MG | every morning before | | | | | e | | capsule | breakfast. | | | | | | + + +-------+---------+------+------+-------+ | loperamide | Take 2 mg by mouth 4 | | | | | Activ | | (IMODIUM) 2 MG | (four) times daily | | | | | e | | capsule | as needed for | | | | | | | | Diarrhea. | | | | | | + + +-------+---------+------+------+-------+ | dicyclomine | Take 20 mg by mouth | | | | | Activ | | (BENTYL) 20 MG | every 6 (six) hours. | | | | | e | | tablet | | | | | | | + + +-------+---------+------+------+-------+ | diclofenac | Take 50 mg by mouth | | | | | Activ | | (VOLTAREN) 50 MG EC | 2 (two) times daily. | | | | | e | | tablet | | | | | | | + + +-------+---------+------+------+-------+ | VITAMIN D, | Take 2,000 Units by | | | | | Activ | | CHOLECALCIFEROL, PO | mouth daily. | | | | | e | + + +-------+---------+------+------+-------+ | ESCITALOPRAM | Take 20 mg by mouth | | | | | Activ | | OXALATE PO | daily. | | | | | e | + + +-------+---------+------+------+-------+ Active Problems Not on file Family History + + +------+ + | Medical History | Relation | Name | Comments | + + +------+ + | GI Disease | Father | | | + + [...] | | + + +------+ + + +------+--------+ + | Relation | Name | Status | Comments | + +------+--------+ + | Father | | | | + +------+--------+ + | Maternal Aunt | | | | + +------+--------+ + | Maternal Grandfather | | | | + +------+--------+ + | Maternal Grandmother | | | | + +------+--------+ + | Maternal Uncle | | | | + +------+--------+ + | Maternal Uncle | | | | + +------+--------+ + | Mother | | | | + +------+--------+ + Social History + +-------+ +--------+------+ | Tobacco Use | Types | Packs/Day | Years | Date | | | | | Used | | + +-------+ +--------+------+ | Never Assessed | | | | | + +-------+ +--------+------+ + + + | Sex Assigned at | Date Recorded | | | | + + + | Not on file | | + + + Plan of Treatment + + + + + | Health Maintenance | Due Date | Last Done | Comments | + + + + + | Vaccine: | | | | | Dtap/Tdap/Td (1 - | 0 | | | | Tdap) | | | | + + + + + | Vaccine: Influenza | | | | | (#1) | 8 | | | + + + + + Results Not on filefrom Last 3 Months"
--- OUTSIDE RECORDS SUMMARY | ~2018-07-14 | XMS | Clinical Summary ---
Demographics + + + | Address | [address] | | | [place] [address] | + + + | Home Phone | | + + + | Preferred Language | Unknown | + + + | Marital Status | Unknown | + + + | Quaker Affiliation | Unknown | + + + | Race | Unknown | + + + | Ethnic Group | Unknown | + + + Author + + + | Author | [facility] | + + + | Organization | [facility] | + + + | Address | Unknown | + + + | Phone | Unavailable | + + + Support + + +---------+ + | Name | Relationship | Address | Phone | + + +---------+ + | N,Contatcs | ECON | Unknown | | + + +---------+ + Care Team Providers + +------+ + | Care Phonograph Needle Tip Maker Name | Role | Phone | + [...]
[~2018-07-14 17:47] MED LIST changes: +AMITRIPTYLINE H10 MG PO; +SIMVASTATIN5 MG PO
[2018-07-14] MEDS ORDERED: ESCITALOPRAM OXA5 MG PO (17:59)
[2018-07-14] MEDS ORDERED: GENTAMICIN SULFA5 ML OD (19:11)
== END 2018-07-14 19:28 | disposition home or self-care (01) ==
LOC: ED 17:47
DX: H10.33 Unspecified acute conjunctivitis, bilateral (principal); F17.200 Nicotine dependence, unspecified, uncomplicated; Z91.030 Bee allergy status; Z88.5 Allergy status to narcotic agent; Z79.899 Other long term (current) drug therapy
CPT/HCPCS: 99283

== ENCOUNTER 2022-01-13 15:53 | Emergency (ER) | payer OTHER ==
[~2022-01-13] VITALS: Ht 172.7 cm; Wt 103.2 kg
[~2022-01-13 15:53] MED LIST changes: +ESCITALOPRAM OXA5 MG PO; +GENTAMICIN SULFA5 ML OD
--- NOTE | 2022-01-13 16:55 | EKG ---
[facility] [address] [place], [place] [address] Signed Sinus tachycardia Otherwise normal ECG Confirmed by PADMINI MACDONALD MD ([id number]) on 01/13/2022 4:55:43 PM Electronically Signed By: PADMINI MACDONALD MD 01/13/22 1655 PATIENT NAME: SARBJIT WALLS BART Electrocardiogram DATE OF : 82 PHYSICIAN: PADMINI MACDONALD MD REPORT #: [id number] REPORT IS CONFIDENTIAL AND NOT TO BE RELEASED WITHOUT AUTHORIZATION
[2022-01-13] MEDS ORDERED: CARAFATE1 GM PO (17:08)
[2022-01-13] MEDS ORDERED: OXYCODONE HCL5 MG PO (17:08)
[2022-01-13] MEDS ORDERED: LIDODERM1 EACH TOP (17:08)
== END 2022-01-13 17:33 | disposition home or self-care (01) ==
LOC: ED 15:53
DX: R07.89 Other chest pain (principal); K21.9 Gastro-esophageal reflux disease without esophagitis; R05.9 Cough, unspecified; R73.9 Hyperglycemia, unspecified; M19.90 Unspecified osteoarthritis, unspecified site; G47.30 Sleep apnea, unspecified; F17.200 Nicotine dependence, unspecified, uncomplicated; Z88.5 Allergy status to narcotic agent; Z91.030 Bee allergy status; Z79.899 Other long term (current) drug therapy
CPT/HCPCS: 36415; 71045; 80053; 83036; 83735; 84484; 85025; 93005; 93010; 96374; 96375; 99285-25; J1885; J2270; J2405

== ENCOUNTER 2023-07-22 09:45 | Emergency (ER) | payer OTHER ==
[~2023-07-22] VITALS: Ht 172.7 cm; Wt 95.4 kg
--- OUTSIDE RECORDS SUMMARY | ~2023-07-22 | XMS | Continuity of Care Document ---
Demographics + + + | Address | [address] | | | [place] [address] | + + + | Preferred Language | Unknown | + + + | Marital Status | | + + + | Synagogue Affiliation | Unknown | + + + | Race | White | + + + | Ethnic Group | Not or | + + + Author + + + | Author | [facility] | + + + | Organization | [facility] | + + + | Address | [address] | | | [place] [address] | + + + | Phone | | + + + Care Team Providers + + + + | Care Locomotive Crane Engineer Name | Role | Phone | + + + + Unavailable | Unavailable | + + + + Allergies No information. Encounters No information. Functional Status No information. Immunizations No information. Medications No information. Problems + + + + | date | description | facility | + + + + | 2023-05-12 11:46 | [facility] | [facility] | | | PULMONARY DISEASE, U | | + + + + | 2023-05-12 11:46 | [facility] | [facility] | | | PULMONARY DISEASE, | | | | UNSPECIFIED | | + + + + | 2023-05-12 12:00 | [facility] | [facility] | | | PULMONARY DISEASE, [facility] | | + + + + Procedures No information. Results/Labs No information. Social History +--------+ + + | date | description | facility | +--------+ + + Vital Signs No information."
--- OUTSIDE RECORDS SUMMARY | ~2023-07-22 | XMS | Continuity of Care Document ---
Demographics + + + | Address | [address] | | | [place] [address] | + + + | Preferred Language | Unknown | + + + | Marital Status | | + + + | Orthodoxy Affiliation | Unknown | + + + | Race | White | + + + | Ethnic Group | Not or | + + + Author + + + | Author | [facility] | + + + | Organization | [facility] | + + + | Address | [address] | | | [place] [address] | + + + | Phone | | + + + Care Team Providers + + + + | Care Heavy Duty Custodian Name | Role | Phone | + [...]
[~2023-07-22 09:45] MED LIST changes: +CARAFATE1 GM PO; +CIPRO500 MG PO; +FLOMAX0.4 MG PO; +LIDODERM1 EACH TOP; +ONDANSETRON ODT4 MG PO; +OXYCODONE HCL5 MG PO
[2023-07-22] MEDS ORDERED: METFORMIN HCL500 MG PO (10:01)
[2023-07-22] MEDS ORDERED: SIMVASTATIN20 MG PO (10:01)
[2023-07-22] MEDS ORDERED: OMEPRAZOLE20 MG PO (10:01)
[2023-07-22 10:02] LABS: BILIRUBIN, URINE NEGATIVE (negative); BLOOD/HGB, URINE NEGATIVE (Negative); KETONE, URINE NEGATIVE (Negative); LEUK ESTERASE, URINE NEGATIVE (negative); NITRITE, URINE NEGATIVE (negative); PH, URINE 5.5 (5-7)
[2023-07-22 11:03] LABS: ALBUMIN 4.1 g/dL (3.4-5.0); ALBUMIN/GLOBULIN RATIO 1.11 (1.1-2.4); ANION GAP 13.9 (7-21); BILIRUBIN, TOTAL 0.4 ng/dL (0.2-1.0); BUN/CREATININE RATIO 16.83 (6.0-28.6); CALCIUM 9.5 mg/dL (8.5-10.1); CREATININE, SERUM 1.01 mg/dL (0.70-1.30); POTASSIUM 3.9 mmol/L (3.5-5.1); PROTEIN, TOTAL 7.8 g/dL (6.4-8.2)
[2023-07-22 11:04] LABS: BASOPHILS 0.8 % (0-2); EOSINOPHILS 5.1 % (0-6); HEMATOCRIT 42.9 % (35.0-50.0); HEMOGLOBIN 14.4 g/dL (12.0-18.0); LYMPHOCYTES 40.6 % (24-44); MCH 30.4 (27-36); MCHC 33.7 g/dl (30-36); MCV 90.2 fl (81-99); MONOCYTES 6.6 % (0-12); NEUTROPHILS 46.9 % (39-80); PLATELET COUNT 295 K/uL (140-440); RBC 4.75 M/ul (4.3-5.7); RDW 13.7 (10.5-15.0)
[2023-07-22] MEDS ORDERED: TRAMADOL HCL50 MG PO (13:46)
[2023-07-22 14:05] VITALS: BP 101/66
== END 2023-07-22 14:02 | disposition home or self-care (01) ==
LOC: ED 09:45
PROVIDERS: Internal Medicine
DX: K76.0 Fatty (change of) liver, not elsewhere classified (principal); R10.11 Right upper quadrant pain; D72.829 Elevated white blood cell count, unspecified; F17.200 Nicotine dependence, unspecified, uncomplicated; Z91.038 Other insect allergy status; Z88.5 Allergy status to narcotic agent; Z79.899 Other long term (current) drug therapy
CPT/HCPCS: 36415; 74177; 76705; 80053; 81003; 83690; 85025; C9113; J1885; J2270; J2405; J7030; Q9967

== ENCOUNTER 2024-12-04 15:58 | Emergency (ER) | payer OTHER ==
[~2024-12-04] VITALS: Ht 172.7 cm; Wt 99.8 kg
[~2024-12-04 15:58] MED LIST changes: +METFORMIN HCL500 MG PO; +OMEPRAZOLE20 MG PO; +SIMVASTATIN20 MG PO
[2024-12-04] MEDS ORDERED: KETOROLAC TROMETHAMINE 15 MG/ML VIAL IV ONE (16:15)
[2024-12-04] MEDS ORDERED: ondansetron HCL 4 MG/2 ML VIAL IV PRN (16:15)
[2024-12-04 16:16] LABS: HEMATOCRIT 46.6 % (35.0-50.0); HEMOGLOBIN 15.7 g/dL (12.0-18.0); MCHC 33.7 g/dl (30-36); MCV 91.8 fl (81-99); PLATELET COUNT 276 K/uL (140-440); RBC 5.08 M/ul (4.3-5.7); RDW 13.6 (10.5-15.0)
[2024-12-04] MEDS ORDERED: METFORMIN HCL1000 M1 (16:29)
[2024-12-04] MEDS ORDERED: ESCITALOPRAM OX10 MG PO (16:29)
[2024-12-04] MEDS ORDERED: ONDANSETRON ODT8 MG (16:30)
[2024-12-04] MEDS ORDERED: OSTERA TABLET1 EACH (16:30)
[2024-12-04] MEDS ORDERED: SODIUM CHLORIDE 0.9% 1,000 ML IV PRN ×3 (16:30→19:30)
[2024-12-04 16:32] LABS: ALBUMIN 4.2 g/dL (3.4-5.0); ALBUMIN/GLOBULIN RATIO 1.2 (1.1-2.4); ANION GAP 17.8 (7-21); BASOPHILS, MANUAL DIFF 1; BILIRUBIN, TOTAL 0.4 ng/dL (0.2-1.0); BUN/CREATININE RATIO 13.18 (6.0-28.6); CALCIUM 9.6 mg/dL (8.5-10.1); CREATININE, SERUM 0.91 mg/dL (0.70-1.30); EOSINOPHILS, MANUAL DIFF 3; LYMPHOCYTES, MANUAL DIFF 56; MONOCYTES, MANUAL DIFF 2; NEUTROPHILS, MANUAL DIFF 38; POTASSIUM 3.8 mmol/L (3.5-5.1); PROTEIN, TOTAL 7.7 g/dL (6.4-8.2)
[2024-12-04 19:48] LABS: BILIRUBIN, URINE NEGATIVE (negative); BLOOD/HGB, URINE NEGATIVE (Negative); KETONE, URINE TRACE (Negative); LEUK ESTERASE, URINE NEGATIVE (negative); NITRITE, URINE POSITIVE (negative)
[2024-12-04 19:55] LABS: EPITHELIAL CELLS, URINE NONE SEEN /lpf (0-1+)
[2024-12-04 19:56] LABS: BACTERIA, URINE RARE /hpf (negative); CASTS, URINE NONE SEEN \\lpf; CRYSTALS, URINE AMORPHOUS URATES 1+ (0-1+); REFLEX CULTURE, URINE No (No)
[2024-12-04 19:57] LABS: COLLECTION TYPE, URINE CLEAN CATCH
[2024-12-04] MEDS ORDERED: OXYCODONE/ACETAMINOPHEN 1 TAB HOME.PACK PO ONE (20:45)
[2024-12-04] MEDS ORDERED: CEFDINIR 300 MG HOME.PACK PO ONE (20:45)
[2024-12-04] MEDS ORDERED: TAMSULOSIN HCL 0.4 MG CAP PO ONE (20:45)
[2024-12-04] MEDS ORDERED: ONDANSETRON 4 MG HOME.PACK SL ONE (20:45)
[2024-12-04] MEDS ORDERED: ONDANSETRON ODT8 MG PO (20:48)
[2024-12-04] MEDS ORDERED: CEFDINIR300 MG PO (20:48)
[2024-12-04] MEDS ORDERED: FLOMAX0.4 MG PO (20:48)
[2024-12-04] MEDS ORDERED: PERCOCET 5-3251 EACH PO (20:48)
[2024-12-04 21:00] VITALS: BP 151/92
== END 2024-12-04 21:01 | disposition home or self-care (01) ==
LOC: ED 15:58
PROVIDERS: Emergency Medicine
DX: N20.0 Calculus of kidney (principal); K21.9 Gastro-esophageal reflux disease without esophagitis; E11.9 Type 2 diabetes mellitus without complications; F17.200 Nicotine dependence, unspecified, uncomplicated; Z88.5 Allergy status to narcotic agent; Z91.030 Bee allergy status; Z79.899 Other long term (current) drug therapy
CPT/HCPCS: 36415; 51798; 74176; 80053; 81001; 85025; 96374; 96375; 99284-25; A9270; J1885; J2405; J7030

== ENCOUNTER 2025-04-25 19:17 | Emergency (ER) | payer OTHER ==
[~2025-04-25] VITALS: Ht 172.7 cm; Wt 99.3 kg
[~2025-04-25 19:17] MED LIST changes: +CEFDINIR300 MG PO; +ESCITALOPRAM OX10 MG PO; +METFORMIN HCL1000 M1; +ONDANSETRON ODT8 MG; +ONDANSETRON ODT8 MG PO; +OSTERA TABLET1 EACH
[2025-04-25 23:21] VITALS: BP 150/107
== END 2025-04-25 23:22 | disposition home or self-care (01) ==
LOC: ED 19:17
DX: Z02.79 Encounter for issue of other medical certificate (principal); K21.9 Gastro-esophageal reflux disease without esophagitis; E11.9 Type 2 diabetes mellitus without complications; G47.30 Sleep apnea, unspecified; F17.200 Nicotine dependence, unspecified, uncomplicated; Z79.84 Long term (current) use of oral hypoglycemic drugs; Z79.899 Other long term (current) drug therapy; Z91.030 Bee allergy status; Z88.5 Allergy status to narcotic agent
CPT/HCPCS: 99283

== ENCOUNTER 2025-05-16 14:00 | Emergency (ER) | payer OTHER ==
[~2025-05-16] VITALS: Ht 172.7 cm; Wt 97.2 kg
--- OUTSIDE RECORDS SUMMARY | 2025-05-16 14:07 | XMS ---
PreManage Notification: SARBJIT WALLS Security Deicer Inspector Pneumatic Events No recent Security Events currently on file CRITERIA MET - [facility] - 2 Visits in 30 Days CARE PROVIDERS -[facility] Dentist: Quality Control Checker [facility] PHONE: [phone] -, [place]- Dentist: Quality Control Checker [facility] PHONE: [phone] Anju has no Care Guidelines for this patient. EJosh VISIT COUNT (12 MO.) [address] [place] [address] TOTAL 3 NOTE: Visits indicate total known visits. 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 [place] TYPE: Emergency COMPLAINT: - FLANK PAIN DIAGNOSES: - Allergy status to narcotic agent - Bee allergy status - Calculus of kidney - Gastro-esophageal reflux disease without esophagitis - Nicotine dependence, unspecified, uncomplicated - Other chcf (current) drug therapy - Type 2 diabetes mellitus without complications - Unspecified abdominal pain INPATIENT VISIT TRACKING (12 MO.) No inpatient visits to display in this time frame [email or web address]
[2025-05-16] MEDS ORDERED: DIPHTH,PERTUSS(ACELL),TET VAC 0.5 ML SYRINGE IM ONE (14:30)
[2025-05-16 15:28] VITALS: BP 160/104
== END 2025-05-16 15:30 | disposition home or self-care (01) ==
LOC: ED 14:00
DX: S61.011A Laceration without foreign body of right thumb without damage to nail, initial encounter (principal); K21.9 Gastro-esophageal reflux disease without esophagitis; E11.9 Type 2 diabetes mellitus without complications; F17.200 Nicotine dependence, unspecified, uncomplicated; W45.8XXA Other foreign body or object entering through skin, initial encounter; Z79.84 Long term (current) use of oral hypoglycemic drugs; Z79.899 Other long term (current) drug therapy; Z88.5 Allergy status to narcotic agent; Z91.030 Bee allergy status
CPT/HCPCS: 12001; 90471; 90715; 99282-25